=== PATIENT | male | born 1955 | race Caucasian/White ===

== ENCOUNTER 2022-04-25 02:45 | Observation (INO) | payer MEDICARE, MEDICAID, SELFPAY ==
[2022-04-25] VITALS (13 sets, daily range): BP systolic 122–169; BP diastolic 78–110; PULSE 73–130; RESP 16–30; TEMP 36.7–37.7; O2SAT 90–97; BMI 27.8; BMI 27.3
--- NOTE | 2022-04-25 | ECG_ITS ---
APPROVED REPORT Exam: Resting ECG HR:78 bpm ECG Measurements Heart Rate 78 AXES QRSd 82 QRS 71 QT 407 T 81 QTc 441 Conclusion SUPRAVENTRICULAR RHYTHM ABNORMAL RHYTHM ECG UNCONFIRMED REPORT Electronically signed by : Rush Camara MD 04/26/2022 13:28:35
--- NOTE | 2022-04-25 02:42 | ECG_ITS ---
APPROVED REPORT Exam: Resting ECG HR:170 bpm ECG Measurements Heart Rate 170 AXES QRSd 88 QRS 69 QT 248 T 61 QTc 340 Conclusion ATRIAL FIBRILLATION WITH RAPID VENTRICULAR RESPONSE NONSPECIFIC ST & T-WAVE ABNORMALITY CRITICAL TEST RESULT UNCONFIRMED REPORT Electronically signed by : Rush Camara MD 04/26/2022 13:29:14
--- NOTE | 2022-04-25 02:59 | XR_ITS ---
PROCEDURE INFORMATION: Exam: XR Chest Exam date and time: 04/25/2022 3:07 AM Age: 66 years old Clinical indication: Shortness of breath; Patient HX: PT states SOA x3 days, worsening. Former smoker, HX afib; Additional info: Congestion TECHNIQUE: Imaging protocol: Radiologic exam of the chest. Views: 2 views. COMPARISON: No relevant prior studies available. FINDINGS: Lungs: There is volume loss in the right hemithorax with shift of the heart from left to right, crowding of the right ribs, and diffuse right pleural thickening. Findings may reflect prior partial pneumonectomy, but severe atelectasis from an obstructing process is not excluded. Calcified granulomas are noted in the hyperinflated left lung. Pleural spaces: Diffuse right pleural thickening. No pneumothorax on either side. Heart/Mediastinum: Mild cardiac enlargement. Bones/joints: There is thoracic levoscoliosis. IMPRESSION: There is volume loss in the right hemithorax with diffuse pleural thickening and mediastinal shift. Findings may reflect prior partial lung resection. Alternatively, there could be an obstructing process with severe atelectasis in the right lung. If prior imaging is not available for comparison, CT may be helpful for further characterization.
[2022-04-25 03:07] LABS: Coronavirus 19, PCR Not Detected (NotDetected); Influenza B, PCR Not Detected (NotDetected)
[2022-04-25 03:11] LABS: Chloride 95 mmol/L (98-107); Potassium 3.5 mmoL/L (3.5-5.1); Sodium 136 mmol/L (136-145)
[2022-04-25 03:13] LABS: Basophils % 0.7 % (0.1-2.0); Eosinophils # 0.1 K/mm3 (0.0-0.4); Eosinophils % 1.3 % (0.1-12.0); Hematocrit 43.6 % (42.0-52.0); Hemoglobin 14.2 g/dL (14.1-18.0); Lymphocytes # 0.6 K/mm3 (0.7-4.5); Lymphocytes % 10.9 % (10-50); Mean Corpuscular HGB Conc 32.6 g/dL (31.8-35.4); Mean Corpuscular Hemoglobin 31.8 pg (27.0-31.2); Mean Corpuscular Volume 97.6 fl (80-94); Mean Platelet Volume 7.8 fl (7.4-10.4); Monocytes # 0.5 K/mm3 (0.1-1.0); Neutrophils # 4.6 K/mm3 (1.8-7.8); Neutrophils % 78.1 % (37.0-80.0); Platelet Count 164 K/mm3 (142-424); Red Blood Count 4.47 M/mm3 (4.60-6.20); Red Cell Distribution Width 15.4 % (11.5-17.5); White Blood Count 5.9 K/mm3 (4.8-10.8)
[2022-04-25 03:14] LABS: Alanine Aminotransferase 38 U/L (12-78); Albumin Level 4.2 g/dl (3.5-5.0); Albumin/Globulin Ratio 1.4 (1.1-1.8); Alkaline Phosphatase 118 U/L (38-126); Anion Gap 18.5 mEq/L (5-15); Aspartate Amino Transferase 71 U/L (17-59); Bilirubin,Total 1.1 mg/dl (0.2-1.3); Blood Urea Nitrogen 6 mg/dl (9-20); Carbon Dioxide 26 mmol/L (22.0-30.0); Creatinine Clearance Estimated 82 mL/min (50-200); Estimated Glomerular Filt Rate 96 ml/min (>60); GFR (African American) 117 ML/MIN (>60); Globulin 3.1 g/dL (1.3-3.2); Total Protein,Serum 7.3 g/dl (6.3-8.2)
[2022-04-25 03:15] LABS: Ethyl Alcohol 23 mg/dl (0-10); Glucose 109 mg/dl (74-100)
--- NOTE | 2022-04-25 03:16 | HMH.EDSOB ---
Discharge Plan Disposition Patient Disposition: Admitted As Inpatient Clinical Impressions Clinical Impression: Atrial fibrillation with rapid ventricular response, Flu syndrome Discharge ED Provider: Yasmany Metzger Resp/SOB HPI General Chief Complaint: Shortness of Breath/Dyspnea Stated Complaint: SOA Time Seen by Provider: 04/25/22 03:16 Mode of Arrival: EMS Source of Information: Patient, EMS and Medical Record Limitations: No Limitations Description of Symptoms (Recalled from ER Triage Doc. by RN): pt stated that he has had a cough for about 4 days and tonnight he had a coughing fit he couldnt catch his breath from. the pt has a hx of afib and htn has not had his meds in about 4 days either because he hasnt been home. he is staying with his daughter here is [place] History of Present Illness pt has been off meds for a few days and has cough and sob - hx of a fib - no chest pain MD Complaint: shortness of breath and cough Onset (ago): day(s) Context: medication noncompliance Severity: moderate Consistency/Duration: intermittent Known history of: COPD and other (a fib ) Associated symptoms: denies other symptoms Treatment prior to arrival: bronchodilator Related Data Home oxygen amount: none Allergies Allergy/AdvReac Type Severity Reaction Status Date / Time No Known Allergies Allergy Verified 04/25/22 02:59 PFSH PFSH Social History Smoking Status: Current every day smoker alcohol intake: never current occupational status: unemployed Travel in the last 8 weeks: None ROS Obtained: Yes All systems reviewed & no additional complaints except as documented Physical Exam General General appearance: alert Head Head exam: normocephalic Eye Eye exam: Present PERRL and EOMI; Absent scleral icterus Neck Neck exam: Present trachea midline Respiratory Respiratory exam: Present wheezes and other (dec bs bilat - has kyphosis); Absent respiratory distress Cardiovascular Cardiovascular exam: Present irregular rhythm, systolic murmur and +S4 Abdominal Exam Abdominal exam: Present soft Extremities Exam Extremities exam: Absent calf tenderness Back Exam Back exam: Present other (sciolosis) Neurological Exam Neurological exam: Present alert and CN II-XII intact Skin Skin exam: Absent rash Medical Decision Making Medical Records Medical records reviewed: Yes I reviewed the patient's medical records. [place] Inquiry Pt receiving controlled substance: No Vital Signs: 04/25/22 02:45 04/25/22 03:30 04/25/22 04:15 Temperature 98.5 F Temperature Source Oral Pulse Rate 115 H 109 H Pulse Rate [Left] 117 H Respiratory Rate 16 Blood Pressure 169/99 H 139/90 Blood Pressure [Right Arm] 157/110 H Blood Pressure Mean 119 106 Blood Pressure Mean [Right Arm] 125 02 Sat by Pulse Oximetry 97 95 96 Oxygen Delivery Method Room Air Lab Data Lab results reviewed: Yes I reviewed the patient's lab results. Lab Results 04/25/22 02:45: WBC 5.9, RBC 4.47 L, Hgb 14.2, Hct 43.6, MCV 97.6 H, MCH 31.8 H, MCHC 32.6, RDW 15.4, Plt Count 164, MPV 7.8, Neut % (Auto) 78.1, Lymph % (Auto) 10.9, [place] % (Auto) 9.0, Eos % (Auto) 1.3, Baso % (Auto) 0.7, Neut # (Auto) 4.6, Lymph # (Auto) 0.6 L, [place] # (Auto) 0.5, Eos # (Auto) 0.1, Baso # (Auto) 0.0 04/25/22 02:45: Sodium 136, Potassium 3.5, Chloride 95 L, Carbon Dioxide 26, Anion Gap 18.5 H, BUN 6 L, Creatinine 0.80, Estimated Creat Clear 82, Estimated GFR 96, Est GFR ( Amer) 117, Glucose 109 H, Calcium 9.0, Total Bilirubin 1.1, AST 71 H, ALT 38, Alkaline Phosphatase 118, NT-Pro-B Natriuret Pep 404 H, Total Protein 7.3, Albumin 4.2, Globulin 3.1, Albumin/Globulin Ratio 1.4, TSH 4.20 04/25/22 02:45: Free T4 0.89 04/25/22 02:45: SARS-CoV-2 (PCR) Not detected, Influenza A Untype (PCR) Detected A, Influenza Type B (PCR) Not detected 04/25/22 02:45: Plasma/Serum Alcohol 23 H 04/25/22 02:45: Troponin I < 0.01 Result diagrams: 04/25/22 02:45
[2022-04-25 03:25] LABS: NT Pro Brain Natriuretic Pep. 404 pg/mL (0-125)
[2022-04-25 03:33] LABS: Influenza A, PCR Detected (NotDetected)
[2022-04-25 03:34] LABS: Free T4 (Free Thyroxine) 0.89 ng/dl (0.78-2.19)
--- NOTE | 2022-04-25 04:18 | PC.NURSE ---
diltiazem bumped to 10 mg /hr at 411
[2022-04-25 04:29] LABS: Troponin I < 0.01 ng/ml (0.00-0.034)
--- NOTE | 2022-04-25 04:58 | PC.NURSE ---
pt drip bumped to 15mg /hr
--- NOTE | 2022-04-25 05:18 | CT_ITS ---
PROCEDURE INFORMATION: Exam: CT Chest Without Contrast; Diagnostic Exam date and time: 04/25/2022 5:26 AM Age: 66 years old Clinical indication: Shortness of breath; Patient HX: HX afib. Denies any surgery to chest; Additional info: SOA TECHNIQUE: Imaging protocol: Diagnostic computed tomography of the chest without contrast. Radiation optimization: All CT scans at this facility use at least one of these dose optimization techniques: automated exposure control; mA and/or kV adjustment per patient size (includes targeted exams where dose is matched to clinical indication); or iterative reconstruction. COMPARISON: CR XR CHEST 2V 04/25/2022 3:07 AM FINDINGS: Lungs: Right lung is small with a prominent band of basilar atelectasis. There is diffuse bronchial wall thickening and luminal narrowing, most prominent on the right. Varicoid bronchiectasis is noted in the right upper lobe. Left lung is notable for emphysema. Small nodular foci at the left apex could represent focal scarring, but follow-up is warranted. Scattered calcified granulomas are noted. Pleural spaces: There is dense calcified pleural plaque on the right with very prominent extrapleural fat. Heart: Mild cardiomegaly. No significant pericardial fluid. Lymph nodes: Calcified mediastinal lymph nodes. Vasculature: Within expected limits for age. Normal caliber arteries. Bones/joints: Crowded right ribs are compatible with chronic volume loss. Old healed left rib fractures are noted. Thoracic levoscoliosis. No acute bony abnormality. Soft tissues: Unremarkable. IMPRESSION: 1. Exam demonstrates small right hemithorax with prominent extrapleural fat and calcified pleural plaque. There is chronic appearing right upper lobe bronchiectasis and multifocal atelectasis in the remainder of the right lung. Findings likely represent sequela of prior trauma or severe infection. 2. Emphysema is noted. At the left lung apex, there are several small irregular nodular foci, largest of which measures 8 mm in average diameter. For patients at low risk (minimal or absent history of smoking and of other known risk factors), recommend CT Chest at 3-6 months, then consider CT Chest at 18-24 months. For patients at high risk (history of smoking or of other known risk factors), recommend CT Chest at 3-6 months, then CT Chest at 18-24 months. (Reference: Maribell) REFERENCES: Maribell Randall et al. Guidelines for Management of Incidental Pulmonary Nodules Detected on CT Images: From the Fleischner Society 2017. Radiology. 2017;284(1):228-243.
--- NOTE | 2022-04-25 05:31 | PC.NURSE ---
Pt gone to RAD for CT
--- NOTE | 2022-04-25 05:36 | PC.NURSE ---
PT back from RAD
--- NOTE | 2022-04-25 06:07 | EXP.HP ---
History of Present Illness *Admission Date: 04/25/22 *Reason for visit:: Shortness of air *History of present illness: Mr. Walton is a 66-year-old male with a past medical history of Atrial Fibrillation on Chronic anticoagulation and Hypertension. He presents to [facility] with a 4 day history of cough associated with shortness of air. He denies fevers, chills or body aches. He denies known similar sick contacts or the use of otc medications for his symptoms. He reports he is visiting his daughter and forgot his home medications of Cardizem and Eliquis. In the ER, EKG showed Atrial Fibrillation with rate of [address] segment elevation or depression. TSH was 4.20 and Free T4 was normal. Cxray showed a volume loss in the right hemithorax and mediastinal shift. CT of the chest performed showed a small right hemithorax with a prominent extra pleural fat pad that appeared chronic. The patient denies any history of chest trauma or infections. Flu testing in the ER was positive. In the ER, the patient was given a Cardizem bolus and placed on maintenance Cardizem with improvement in rate. He was started on Tamiflu for Flu. The plan to admit the patient was discussed with the patient at bedside along with the plan of care. The patient verbalized understanding and agreement with the plan of care. [facility] Medical History (Updated 04/25/22 @ 11:08 by Mariam Zamora MD) Atrial fibrillation History of pneumothorax History of smoking 30 or more pack years Hypertension Lung nodule seen on imaging study Pleural calcification Restrictive lung disease Family History (Updated 04/25/22 @ 08:09 by Maureen Styles RN) No significant family history Social History (Updated 04/25/22 @ 08:09 by Maureen Styles RN) Smoking Status: Never smoker alcohol intake: never current occupational status: unemployed Travel in the last 8 weeks: None Review of Systems Review of Systems Review of systems:: pertinent systems reviewed and negative unless documented below Constitutional Constitutional: Reports system reviewed and no additional complaints, except as documented Eyes Eyes: Reports system reviewed and no additional complaints, except as documented ENT Ears, Nose, Mouth, and Throat: Reports system reviewed and no additional complaints, except as documented *Cardiovascular Cardiovascular: Reports dyspnea, Reports irregular heart rhythm and Reports palpitations *Respiratory Respiratory: Reports cough and Reports dyspnea *Gastrointestinal Gastrointestinal: Reports system reviewed and no additional complaints, except as documented *Genitourinary Genitourinary: Reports system reviewed and no additional complaints, except as documented *Musculoskeletal Musculoskeletal: Reports system reviewed and no additional complaints, except as documented Integumentary/Breasts Skin/Breast: Reports system reviewed and no additional complaints, except as documented *Neurologic Neurologic: Reports system reviewed and no additional complaints, except as documented Psychiatric Psychiatric: Reports system reviewed and no additional complaints, except as documented Endocrine Endocrine: Reports palpitations Hematologic/Lymphatic Hematologic/Lymphatic: Reports system reviewed and no additional complaints, except as documented Allergic/Immunologic Allergic/Immunologic: Reports system reviewed and no additional complaints, except as documented Meds Home Medications and Allergies Home Medications Medication Instructions Recorded Confirmed Type apixaban 5 mg tablet (Eliquis) 5 mg PO BID atrial fib/blood 04/25/22 04/25/22 History thinner metoprolol tartrate 50 mg tablet 50 mg PO BID High blood pressure 04/25/22 04/25/22 History New Prescriptions to Start Prescriptions: Allergies Allergy/AdvReac Type Severity Reaction Status Date / Time ibuprofen Allergy Verified 04/25/22 08:14 Exam Data for Last 24 hours [place]
--- NOTE | 2022-04-25 06:30 | PC.NURSE ---
patient up to floor @ this time.
[2022-04-25 09:16] LABS: Troponin I < 0.01 ng/ml (0.00-0.034)
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
--- NOTE | 2022-04-25 10:07 | P.CONPHA_ITS ---
Pharmacy Intervention Comments: home mediaction list verified using lsit from [facility] and pt interview
--- NOTE | 2022-04-25 10:07 | HMH.PHAINT1 ---
Pharmacy Intervention Comments: home mediaction list verified using lsit from [facility] and pt interview
[2022-04-25 10:46] LABS: Troponin I < 0.01 ng/ml (0.00-0.034)
[2022-04-26] VITALS: BP 150/84; PULSE 105; PULSE 98; RESP 32; TEMP 37.5; O2SAT 92
--- NOTE | 2022-04-26 02:21 | PC.NURSE ---
pt transfered to room 201 at this time, pt transported via hospital bed with personal belongings, report given to umang mcelroy.
--- NOTE | 2022-04-26 03:27 | PC.NURSE ---
Pt transferred to room 201 via stretcher, pt alert and oriented, pt assisted in BR and noted patient had BM on toilet and wall when finished, assisted patient into shower and then patient assisted into bed, standby assist only needed, respirations noted to be 32 no labored breathing noted and pt denies shortness of air, rhonci noted worse on expiration in right lower lobe, bilateral lower extremity edema noted, hr regular at this time, tele in place, two iv patents, call light within reach, bed alarm on and functioning
[2022-04-26 04:00] VITALS: BP 134/85; PULSE 112; PULSE 90; RESP 32; TEMP 36.6; O2SAT 95
[2022-04-26 04:20] VITALS: BMI 26.4
[2022-04-26 07:07] LABS: Anion Gap 17.4 mEq/L (5-15); Blood Urea Nitrogen 12 mg/dl (9-20); Carbon Dioxide 27 mmol/L (22.0-30.0); Chloride 92 mmol/L (98-107); Creatinine Clearance Estimated 80 mL/min (50-200); Estimated Glomerular Filt Rate 96 ml/min (>60); GFR (African American) 117 ML/MIN (>60); Glucose 110 mg/dl (74-100); Potassium 3.4 mmoL/L (3.5-5.1); Sodium 133 mmol/L (136-145)
[2022-04-26 07:14] LABS: Basophils # 0.1 K/mm3 (0-0.2); Basophils % 1.2 % (0.1-2.0); Eosinophils # 0.1 K/mm3 (0.0-0.4); Eosinophils % 0.9 % (0.1-12.0); Hematocrit 43.8 % (42.0-52.0); Hemoglobin 14.2 g/dL (14.1-18.0); Lymphocytes # 0.6 K/mm3 (0.7-4.5); Lymphocytes % 8.2 % (10-50); Mean Corpuscular HGB Conc 32.3 g/dL (31.8-35.4); Mean Corpuscular Hemoglobin 31.5 pg (27.0-31.2); Mean Corpuscular Volume 97.3 fl (80-94); Mean Platelet Volume 8.3 fl (7.4-10.4); Monocytes # 0.6 K/mm3 (0.1-1.0); Monocytes % 7.5 % (1.7-9.3); Neutrophils # 6.4 K/mm3 (1.8-7.8); Neutrophils % 82.2 % (37.0-80.0); Platelet Count 122 K/mm3 (142-424); Red Cell Distribution Width 15.4 % (11.5-17.5); White Blood Count 7.7 K/mm3 (4.8-10.8)
--- NOTE | 2022-04-26 07:50 | EXP.DC.SUM ---
General Admission date:: 04/25/22 Discharge date: 04/26/22 HPI HPI HPI: Mr. Walton is a 66-year-old male with a past medical history of Atrial Fibrillation on Chronic anticoagulation and Hypertension. He presents to [facility] with a 4 day history of cough associated with shortness of air. He denies fevers, chills or body aches. He denies known similar sick contacts or the use of otc medications for his symptoms. He reports he is visiting his daughter and forgot his home medications of Cardizem and Eliquis. In the ER, EKG showed Atrial Fibrillation with rate of [address] segment elevation or depression. TSH was 4.20 and Free T4 was normal. Cxray showed a volume loss in the right hemithorax and mediastinal shift. CT of the chest performed showed a small right hemithorax with a prominent extra pleural fat pad that appeared chronic. The patient denies any history of chest trauma or infections. Flu testing in the ER was positive. In the ER, the patient was given a Cardizem bolus and placed on maintenance Cardizem with improvement in rate. He was started on Tamiflu for Flu. The plan to admit the patient was discussed with the patient at bedside along with the plan of care. The patient verbalized understanding and agreement with the plan of care. Hospital Course Hospital Course Hospital Course: 66-year-old male with past medical history of Atrial Fibrillation on Chronic anticoagulation presents with 4 day history of cough and shortness of air, forgets home medications while visiting daughter presents in A-fib with RVR and found to have Influenza A Atrial Fibrillation with Rapid Ventricular Response - Admitted with RVR due to missing meds. Started on cardizem bolus and maintenance Cardizem gtt in ER with improvement in rate. Transitioned to Home metoprolol dose with ability to wean cardiazem drip. Stable rate control through remainder of admission. Increased dose of metoprolol to 75mg BID. Continued home Eliquis. Continue with increased dose at DC. refilled meds on dc. Influenza A - Identified on admission. Started on Tamiflu. No O2 requirement during admission. complete course on DC for 5d total therapy.. - Pulmonology consulted, recs as follows during admission: Albuterol every 6 hours on as-needed basis, With respect to patient's significantly smaller right hemithorax, decreased lung volumes and right pleural calcifications -likely chronic we will follow as an outpatient basis. Suspected the patient's left upper lobe abnormality/nodules? will follow with a 6-month CT chest without contrast as an outpatient basis. - Needs outpatient TB quantiferon testing Stable for DC. Follow-up with Pulmonology and PCP in the coming weeks. Exam Data for Last 24 hours Vital signs and Labs for Last 24 Hours: Temp Pulse Resp BP Pulse Ox 97.9 F 112 H 32 H 134/85 95 04/26/22 04:00 04/26/22 04:00 04/26/22 04:00 04/26/22 04:00 04/26/22 04:00 Laboratory Results - last 24 hr 04/25/22 08:35: Troponin I < 0.01 04/25/22 10:08: Troponin I < 0.01 04/26/22 06:43: WBC 7.7 D, RBC 4.50 L, Hgb 14.2, Hct 43.8, MCV 97.3 H, MCH 31.5 H, MCHC 32.3, RDW 15.4, Plt Count 122 L D, MPV 8.3, Neut % (Auto) 82.2 H, Lymph % (Auto) 8.2 L, [place] % (Auto) 7.5, Eos % (Auto) 0.9, Baso % (Auto) 1.2, Neut # (Auto) 6.4, Lymph # (Auto) 0.6 L, [place] # (Auto) 0.6, Eos # (Auto) 0.1, Baso # (Auto) 0.1 04/26/22 06:43: Sodium 133 L, Potassium 3.4 L, Chloride 92 L, Carbon Dioxide 27, Anion Gap 17.4 H, BUN 12 D, Creatinine 0.80, Estimated Creat Clear 80, Estimated GFR 96, Est GFR ( Amer) 117, Glucose 110 H, Calcium 9.0 I & O for Last 24 hours: Intake & Output 04/23/22 04/24/22 04/25/22 04/26/22 23:59 23:59 23:59 23:59 Intake Total 240 / 240 0 / 0 Output Total 600 / 600 0 / 0 Balance -360 / -360 0 / 0 Weight 81.692 kg 79.197 kg Constitutional Constitutional: no acute distress, average body habitus and chronically ill appearing
[2022-04-26 08:00] VITALS: BP 131/80; PULSE 103; RESP 24; TEMP 36.7; O2SAT 95
--- NOTE | 2022-04-26 09:59 | EXP.PULM.PN ---
Subjective *Date: 04/26/22 *Time: 12:23 Interval history: No acute respiratory vents overnight. Improving cough and productive phlegm. Continue to remain on room air. Pulmonology Exam Inpatient Vital signs and Labs for Last 24 Hours: Temp Pulse Resp BP Pulse Ox 98.0 F 103 H 24 131/80 95 04/26/22 08:00 04/26/22 08:00 04/26/22 08:00 04/26/22 08:00 04/26/22 08:00 Laboratory Results - last 24 hr 04/25/22 10:08: Troponin I < 0.01 04/26/22 06:43: WBC 7.7 D, RBC 4.50 L, Hgb 14.2, Hct 43.8, MCV 97.3 H, MCH 31.5 H, MCHC 32.3, RDW 15.4, Plt Count 122 L D, MPV 8.3, Neut % (Auto) 82.2 H, Lymph % (Auto) 8.2 L, [place] % (Auto) 7.5, Eos % (Auto) 0.9, Baso % (Auto) 1.2, Neut # (Auto) 6.4, Lymph # (Auto) 0.6 L, [place] # (Auto) 0.6, Eos # (Auto) 0.1, Baso # (Auto) 0.1 04/26/22 06:43: Sodium 133 L, Potassium 3.4 L, Chloride 92 L, Carbon Dioxide 27, Anion Gap 17.4 H, BUN 12 D, Creatinine 0.80, Estimated Creat Clear 80, Estimated GFR 96, Est GFR ( Amer) 117, Glucose 110 H, Calcium 9.0 I & O for Labs for Last 24 Hours: Intake & Output 04/23/22 04/24/22 04/25/22 04/26/22 23:59 23:59 23:59 23:59 Intake Total 240 / 240 0 / 0 Output Total 600 / 600 0 / 0 Balance -360 / -360 0 / 0 Weight 180 lb 1.6 oz 174 lb 9.6 oz Constitutional: Present mild distress Head: Present normocephalic and atraumatic ENT: Present normal exam, normal oropharynx and mucous membranes moist Neck: Present normal inspection and full ROM Respiratory: Present able to speak in complete sentences; Absent respiratory distress, wheezes or crackles Cardiac: Present S1/S2, Tachycardia and radial pulses present GI: Present soft and distention; Absent tenderness or guarding Skin: Present intact; Absent cyanosis or jaundice Neuro: Present alert, awake and oriented x 3 Extremities: Present normal inspection; Absent clubbing or cyanosis Psychiatric: Present normal affect and cooperative Assessment and Plan *Assessment and plan (1) Pleural calcification: Status: Acute Category: Medical Code(s): J94.8 - Other specified pleural conditions (2) Restrictive lung disease: Status: Acute Category: Medical Code(s): J98.4 - Other disorders of lung (3) Lung nodule seen on imaging study: Status: Acute Category: Medical Code(s): R91.1 - Solitary pulmonary nodule (4) History of pneumothorax: Status: Acute Category: Medical Code(s): Z87.09 - Personal history of other diseases of the respiratory system Plan #Influenza pneumonia: #Restrictive lung disease: #Pleural calcifications # Greater than 30 PPD: Presented complaining of worsening cough and shortness of breath, presented to the ED patient noted to be in A. fib RVR and was eventually admitted for further evaluation. Labs personally reviewed, no evidence of leukocytosis. Lymphopenia. Flu PCR positive. Significantly decreased right hemithorax volume and lung volumes,, pleural thickening and pleural calcifications and right upper lobe bronchiectasis -admits severe chest trauma around 1972 status post chest tube placement and associated complications. Did not remember any lung resection. Denies any significant asbestosis exposure. Left upper lobe density likely scarring. On admission examination only appeared to be mild respiratory distress. Chest no significant wheezing/crackles. On room air saturating 95%. Interval update: Continues to remain on room air saturations maintained at 94% above. Improving respiratory distress and cough. Plan:- -Continue Tamiflu x5 days -Albuterol every 6 hours on as-needed basis -With respect to patient's significantly smaller right hemithorax, decreased lung volumes and right pleural calcifications -likely chronic we will follow as an outpatient basis. -Suspected the patient's left upper lobe abnormality/nodules will follow with a 6-month CT chest without contrast as an outpatient basis. TB quantiferon testing -C
[2022-04-27 18:16] LABS: QuantiFERON-TB Gold Plus Negative (Negative)
--- NOTE | 2022-04-30 11:36 | CARE MANAGER ---
Attempted to contact patient related to hospital discharge. Left VM option. MAYKEL Foss
== END 2022-04-26 11:15 | disposition home or self-care (01) ==
LOC: ER 05:11 → 2ND 05:17
PROVIDERS: Internal Medicine Pulmonary Disease; Admitting Provider Internal Medicine Adolescent Medicine; Emergency Provider Emergency Medicine; Visit Provider Internal Medicine Adolescent Medicine
DX: I48.91 Unspecified atrial fibrillation (principal); J98.4 Other disorders of lung; Z79.01 Long term (current) use of anticoagulants; F17.210 Nicotine dependence, cigarettes, uncomplicated; I10 Essential (primary) hypertension; J10.1 Influenza due to other identified influenza virus with other respiratory manifestations; R91.1 Solitary pulmonary nodule; J93.81 Chronic pneumothorax; R06.9 Unspecified abnormalities of breathing; Z20.822 Contact with and (suspected) exposure to COVID-19
CPT/HCPCS: G0378; 36415; 71046; 71250; 80048; 80053; 83880; 84439; 84443; 84484; 85025; 86480; 93005; 99285; C9803; U0003; U0005

== ENCOUNTER 2023-11-15 12:24 | Emergency (ER) | payer MEDICARE, MEDICAID, SELFPAY ==
[2023-11-15] VITALS (7 sets, daily range): BP systolic 125–164; BP diastolic 74–110; PULSE 68–95; RESP 16–18; TEMP 37; O2SAT 95–99; BMI 21.7
--- NOTE | 2023-11-15 12:33 | ED_ITS ---
Discharge Plan Disposition Patient Disposition: Home, Self-Care Condition: Good Prescriptions Prescriptions: New colchicine 0.6 mg tablet 0.6 mg PO BID 4 Days Qty: 8 0RF No Action Eliquis 5 mg Tablet 5 mg PO BID Patient Comments: Pt gets samples benzonatate 100 mg Capsule 200 mg PO Q6H PRN (Reason: cough) 5 Days Qty: 20 0RF albuterol sulfate [Ventolin HFA] 90 mcg/actuation Hfa Aerosol Inhaler 2 puff inhalation Q6HP PRN (Reason: Shortness Of Breath) 30 Days Qty: 1 0RF oseltamivir [Tamiflu] 75 mg Capsule 75 mg PO BID 3 Days Qty: 6 0RF metoprolol tartrate 50 mg Tablet 75 mg PO BID 30 Days Qty: 90 0RF Referrals Follow up/Referrals: Paxton Bobby [Primary Care Provider] - See instructions Activity Restrictions/Add. Instructions Additional Instructions/Restrictions: As we discussed, looking at your labs, as well as your x-ray, as well as your improvement of symptoms with treatment that is commonly used for gout, your wrist pain is likely due to gout, especially in conjunction with your history of similar symptoms. Your x-ray showed findings that are consistent with a crystal deposition disease which is usually gout or pseudogout. After our discussion and shared decision making regarding proceeding or not proceeding with a arthrocentesis or a needle in your wrist to definitively make this diagnosis with getting some of the fluid out of your wrist versus continuing treatment for presumed gout, you have decided to proceed with treatment for presumed gout. I have prescribed this medication to your preferred pharmacy. Please follow-up with your primary care doctor. Please return with any new or worsening symptoms. Clinical Impressions Clinical Impression: Gout Discharge ED Provider: Yannick Arroyo General Adult HPI General Chief complaint: Extremity Problem,Nontraumatic Stated complaint: right arm/wrist pain and swelling, no accident Time Seen by Provider: 11/15/23 12:33 History of Present Illness HPI narrative: The patient presents with a chief complaint of a painful wrist flare-up that began approximately one week ago. He describes the pain as constant and severe enough to prevent him from gripping objects, although he retains the ability to move his fingers. This issue is similar to past experiences with other joints, such as his big toe. Despite seeking medical advice for these symptoms in the past, he reports that no definitive diagnosis was provided at that time. The patient has a history of atrial fibrillation (Afib) for which he is presumably under medical management, although specific medications and dosages are not mentioned. He denies any recent fever, chills, surgeries, hardware implants in the wrist, or recent injuries to the area. The pain affects both the front and back of his wrist. Please note that above description of symptoms, in this electronic medical record under categorization of recalled from ER triage doctor by RN are reflective of an initial nursing assessment, however, is not reflective of my full history and physical exam that was personally taken and clarified. Consequentially, this preceding description of symptoms, which may include the patient's categorized chief complaint in the EMR, do not reflect my personal clinical impression, and the ultimate description of history of present illness and patient stated complaints should be deferred to this section of the note. Unless stated otherwise or congruent with this section of the note, additional signs, symptoms, or incongruence should be interpreted as inaccurate with my clinical impression. Related Data Home Medications Medication Instructions Recorded Confirmed apixaban 5 mg tablet (Eliquis) 5 mg PO BID atrial fib/blood 04/25/22 04/25/22 thinner Previous Rx's Medication Instructions Recorded albuterol sulfate 90 mcg/actuation 2 puff inhalation Q6HP PRN 04/26/22 aerosol inhaler (Ventolin HFA) Shortness Of Breath 30 days #1 ea benzonatate 100 mg capsule 200 mg (2 x 100 mg) PO Q6H PRN 04/26/22 cough 5 days #20 caps metoprolol tartrate 50 mg tablet 75 mg (1.5 x 50 mg) PO BID 30 days 04/26/22 #90 tabs oseltamivir 75 mg capsule (Tamiflu) 75 mg PO BID 3 days #6 caps 04/26/22 colchicine 0.6 mg tablet 0.6 mg PO BID 4 days #8 tabs 11/15/23 Allergies Allergy/AdvReac Type Severity Reaction Status Date / Time ibuprofen Allergy Verified 04/25/22 08:14 [facility] Disclaimer: The information contained in this section may have been updated after the patient was seen, as this information can be updated by other users. Medical History (Updated 11/15/23 @ 15:20 by Yannick Arroyo MD) History of smoking 30 or more pack years History of pneumothorax Lung nodule seen on imaging study Restrictive lung disease Pleural calcification Hypertension Atrial fibrillation Family History (Updated 04/25/22 @ 08:09 by Maureen Styles RN) Other No significant family history Social History (Updated 04/25/22 @ 08:09 by Maureen Styles RN) Smoking Status: Never smoker alcohol intake: never current occupational status: unemployed Travel in the last 8 weeks: None ROS Obtained: Yes other As per HPI Physical Exam General General appearance: alert and in no apparent distress Head Head exam: atraumatic and normocephalic Eye Eye exam: Present normal appearance Neck Neck exam: Present normal inspection Chest Chest inspection: Present normal inspection and symmetric chest wall rise Respiratory Respiratory exam: Present normal lung sounds bilaterally; Absent respiratory distress Cardiovascular Cardiovascular exam: Present regular rate and normal rhythm Abdominal Exam Abdominal exam: Present soft Neurological Exam Neurological exam: Present alert and oriented X3 Psychiatric Psychiatric exam: Present normal affect and normal mood Skin Skin exam: Present warm and dry Other Other exam information: Right wrist with warmth, edema, pain with range of motion, distally neurovascularly intact, no overlying erythema Medical Decision Making Medical Records Medical records reviewed: Yes I reviewed the patient's medical records. [place] Inquiry Pt receiving controlled substance: No Vital Signs: 11/15/23 12:25 11/15/23 13:00 11/15/23 13:30 Temperature 98.6 F Temperature Source Oral Pulse Rate 95 H 86 Pulse Rate [Left] 93 H Respiratory Rate 18 Blood Pressure 139/95 H 133/91 H Blood Pressure [Left Arm] 164/110 H Blood Pressure Mean [Left Arm] 128 02 Sat by Pulse Oximetry 96 95 96 Oxygen Delivery Method Room Air Room Air Room Air 11/15/23 14:00 11/15/23 14:30 11/15/23 15:00 Temperature Temperature Source Pulse Rate 78 72 68 Pulse Rate [Left] Respiratory Rate Blood Pressure 125/82 125/82 126/74 Blood Pressure [Left Arm] Blood Pressure Mean [Left Arm] 02 Sat by Pulse Oximetry 96 96 99 Oxygen Delivery Method Room Air Room Air Room Air 11/15/23 15:40 Temperature 98.6 F Temperature Source Pulse Rate 75 Pulse Rate [Left] Respiratory Rate 16 Blood Pressure 161/89 H Blood Pressure [Left Arm] Blood Pressure Mean [Left Arm] 02 Sat by Pulse Oximetry Oxygen Delivery Method Room Air Lab Data Lab Results 11/15/23 13:00: WBC 10.1, RBC 4.98, Hgb 15.8, Hct 47.4, MCV 95.3 H, MCH 31.8 H, MCHC 33.3, RDW 14.8, Plt Count 190, MPV 7.5, Neut % (Auto) 77.0, Lymph % (Auto) 13.0, [place] % (Auto) 8.3, Eos % (Auto) 0.8, Baso % (Auto) 0.8, Neut # (Auto) 7.8, Lymph # (Auto) 1.3, [place] # (Auto) 0.8, Eos # (Auto) 0.1, Baso # (Auto) 0.1, ESR 16, Sodium 134 L, Potassium 3.6, Chloride 94 L, Carbon Dioxide 25, Anion Gap 18.6 H, BUN 5 L, Creatinine 0.80, Estimated Creat Clear 73, Estimated GFR 96, Est GFR ( Amer) 116, Glucose 111 H, Calcium 9.3, Total Bilirubin 1.2, AST 40, ALT 21, Alkaline Phosphatase 72, C-Reactive Protein 46.0 H, Total Protein 8.0, Albumin 4.4, Globulin 3.6 H, Albumin/Globulin Ratio 1.2 11/15/23 13:00 11/15/23 13:00 Orders (Tests/Meds): ED MEDICATIONS Discontinued Medications Generic Name Dose Route Start Last Admin Trade Name Freq PRN Reason Stop Dose Admin Colchicine 1.2 mg 11/15/23 13:01 11/15/23 13:37 Colchicine 0.6mg Tablet PO 11/15/23 13:02 1.2 mg ONCE ONE Administration Oxycodone HCl 5 mg 11/15/23 13:34 11/15/23 13:37 Oxycodone 5mg Immediate Release Tablet PO 11/15/23 13:35 5 mg ONCE ONE Administration ORDERS Category Date Time Status Wrist XR right 2 views [XR wrist RT 2V] Stat Exams 11/15/23 13:10 Completed CBC w/Auto Diff [Complete Blood Count Auto Diff] Stat Lab 11/15/23 13:00 Completed CMP [Comprehensive Metabolic Panel] Stat Lab 11/15/23 13:00 Completed CRP [C-Reactive Protein] Stat Lab 11/15/23 13:00 Completed ESR [Erythrocyte Sedimentation Rate] Stat Lab 11/15/23 13:00 Completed Medical Decision Narrative: Patient with history and exam per above presenting for evaluation of right wrist pain Diagnoses considered include gout, pseudogout, septic arthritis, fracture, among others. ED workup and treatment included: ED MEDICATIONS Discontinued Medications Generic Name Dose Route Start Last Admin Trade Name Xochilt PRN Reason Stop Dose Admin Colchicine 1.2 mg 11/15/23 13:01 11/15/23 13:37 Colchicine 0.6mg Tablet PO 11/15/23 13:02 1.2 mg ONCE ONE Administration Oxycodone HCl 5 mg 11/15/23 13:34 11/15/23 13:37 Oxycodone 5mg Immediate Release Tablet PO 11/15/23 13:35 5 mg ONCE ONE Administration ORDERS Category Date Time Status Wrist XR right 2 views [XR wrist RT 2V] Stat Exams 11/15/23 13:10 Completed CBC w/Auto Diff [Complete Blood Count Auto Diff] Stat Lab 11/15/23 13:00 Completed CMP [Comprehensive Metabolic Panel] Stat Lab 11/15/23 13:00 Completed CRP [C-Reactive Protein] Stat Lab 11/15/23 13:00 Completed ESR [Erythrocyte Sedimentation Rate] Stat Lab 11/15/23 13:00 Completed Labs were independently interpreted by me, significant for white blood cell count 10.1, CRP 46.0, ESR 16 Imaging was independently visualized and interpreted by me, significant for no acute osseous findings, however findings compatible with crystal deposition disease. Please see radiology report for full details. I reassessed the patient after administration of colchicine. He reports marked improvement of symptoms and is able to move his wrist without any pain. I discussed that the definitive diagnosis to rule out septic arthritis although there are multiple findings and historical features consistent with gout or pseudogout, would be an arthrocentesis. After shared decision-making he declines to proceed with arthrocentesis at this time. He will be treated empirically for gout and will follow-up closely with primary care provider, and return with any new or worsening symptoms. Critical Care Critical Care Time Critical Care Time: No
--- NOTE | 2023-11-15 13:10 | XR_ITS ---
PROCEDURE INFORMATION: Exam: XR Right Wrist Exam date and time: 11/15/2023 1:05 PM Age: 67 years old Clinical indication: Swelling; Wrist; Right; Additional info: Swelling, effusion TECHNIQUE: Imaging protocol: Radiologic exam of the right wrist. Views: 1 or 2 views. COMPARISON: No relevant prior studies available. FINDINGS: Bones/joints: No evidence of acute fracture or malalignment. Carpal arcs are well-maintained. Significant hypertrophic degenerative changes in the trapeziometacarpal joint compatible with chronic sequelae of calcific periarthritis or prior trauma. Slight radial subluxation of the trapeziometacarpal joint, most likely degenerative. Chronic appearing post-traumatic changes also noted in the ulnar styloid process. Soft tissues: Calcifications in the triangular fibrocartilage matrix consistent with crystal deposition disease (CPPD). IMPRESSION: 1. No evidence of acute osseous abnormality in the right wrist. 2. Significant hypertrophic degenerative changes in the trapeziometacarpal joint compatible with chronic sequelae of calcific periarthritis or prior trauma. 3. Slight radial subluxation of the trapeziometacarpal joint, most likely degenerative. 4. Calcifications in the triangular fibrocartilage matrix consistent with crystal deposition disease (CPPD).
[2023-11-15 13:31] LABS: Chloride 94 mmol/L (98-107); Sodium 134 mmol/L (136-145)
[2023-11-15 13:32] LABS: Basophils # 0.1 K/mm3 (0-0.2); Basophils % 0.8 % (0.1-2.0); Eosinophils # 0.1 K/mm3 (0.0-0.4); Eosinophils % 0.8 % (0.1-12.0); Hematocrit 47.4 % (42.0-52.0); Hemoglobin 15.8 g/dL (14.1-18.0); Lymphocytes # 1.3 K/mm3 (0.7-4.5); Mean Corpuscular HGB Conc 33.3 g/dL (31.8-35.4); Mean Corpuscular Hemoglobin 31.8 pg (27.0-31.2); Mean Corpuscular Volume 95.3 fl (80-94); Mean Platelet Volume 7.5 fl (7.4-10.4); Monocytes # 0.8 K/mm3 (0.1-1.0); Monocytes % 8.3 % (1.7-9.3); Neutrophils # 7.8 K/mm3 (1.8-7.8); Platelet Count 190 K/mm3 (142-424); Potassium 3.6 mmoL/L (3.5-5.1); Red Blood Count 4.98 M/mm3 (4.60-6.20); Red Cell Distribution Width 14.8 % (11.5-17.5); White Blood Count 10.1 K/mm3 (4.8-10.8)
[2023-11-15 13:34] LABS: Alanine Aminotransferase 21 U/L (12-78); Albumin Level 4.4 g/dl (3.5-5.0); Albumin/Globulin Ratio 1.2 (1.1-1.8); Alkaline Phosphatase 72 U/L (38-126); Anion Gap 18.6 mEq/L (5-15); Aspartate Amino Transferase 40 U/L (17-59); Bilirubin,Total 1.2 mg/dl (0.2-1.3); Blood Urea Nitrogen 5 mg/dl (9-20); Carbon Dioxide 25 mmol/L (22.0-30.0); Creatinine Clearance Estimated 73 mL/min (50-200); Estimated Glomerular Filt Rate 96 ml/min (>60); GFR (African American) 116 ML/MIN (>60); Globulin 3.6 g/dL (1.3-3.2)
[2023-11-15 13:35] LABS: Calcium 9.3 mg/dl (8.4-10.2); Glucose 111 mg/dl (74-100)
[2023-11-15] MEDS: OXYCODONE 5MG IMMEDIATE RELEASE TABLET 5 MG PO (13:37)
[2023-11-15] MEDS: COLCHICINE 0.6MG TABLET 1.19999999999999996 MG PO (13:37)
[2023-11-15 14:04] LABS: Erythrocyte Sedimentation Rate 16 mm/hr (0-20)
== END 2023-11-15 15:41 | disposition home or self-care (01) ==
PROVIDERS: Emergency Provider Emergency Medicine; PCP Pediatrics
DX: M25.531 Pain in right wrist (principal); M10.031 Idiopathic gout, right wrist; I10 Essential (primary) hypertension; I48.0 Paroxysmal atrial fibrillation
CPT/HCPCS: 73100; 80053; 85025; 85651; 86140; 99283